=== PATIENT | female | born 1955 | race Caucasian/White ===

== ENCOUNTER 2018-01-09 22:22 | Inpatient (IN) | payer BC ==
[~2018-01-09] VITALS: Ht 170.2 cm; Wt 80.3 kg
[2018-01-09 22:25] VITALS: BP_SYST 159
[2018-01-09] MEDS ORDERED: ASPIRIN 81 MG TAB.CHEW PO ONE (22:30)
--- NOTE | 2018-01-09 22:33 | NUR ---
Placed in room 01 . Placed on radiation monitor, blood pressure machine and pulse oximeter. To gown for exam. Side rails up. Report given to JONA Zhang
--- NOTE | 2018-01-09 22:35 | NUR ---
Patient ambulatory to ED a/o x 4 with c/o substernal chest pain and heart palpitations x 2 hours. Patient reports sudden onset of dull pain which does not radiate. -SOB; -N/V/D; Afebrile. Patient denies cardiac Hx. States she has recently cut back on caffeine usage. Patient does not appear in acute distress at this time will continue to monitor.
--- NOTE | 2018-01-09 22:41 | NUR ---
ED MD Corbett at bedside for medical evaluation.
--- NOTE | 2018-01-09 22:43 | NUR ---
Radiolgy at bedside for CXR.
[2018-01-09] MEDS ORDERED: METOPROLOL TARTRATE 25 MG TABLET PO ONE (22:45)
--- NOTE | 2018-01-09 22:50 | NUR ---
#20 gauge angiocath placed to LAC. Use of asceptic technique. Opsite placed over site. Blood return noted. Blood for lab drawn from site. Flushed with 10 cc of normal saline. No evidence of infiltration noted. Patient tolerated well.
[2018-01-09 22:58] LABS: BASOPHILS # (AUTO) 0.1 K/uL (0.0-0.2); EOSINOPHILS # (AUTO) 0.2 K/uL (0.0-0.4); EOSINOPHILS % (AUTO) 3.2 % (0.0-4.0); HEMATOCRIT 40.8 % (36-48); HEMOGLOBIN 13.9 g/dL (12.0-16.0); LYMPHOCYTES # (AUTO) 3.4 K/uL (1.0-5.5); LYMPHOCYTES % (AUTO) 46.5 % (20.5-51.5); MEAN CORPUSCULAR HEMOGLOBIN 29 pg (27-31); MEAN CORPUSCULAR HGB CONC 34 % (32-36); MEAN CORPUSCULAR VOLUME 86 fL (79.0-98.0); MONOCYTES # (AUTO) 0.7 K/uL (0.0-1.0); MONOCYTES % (AUTO) 9.2 % (1.7-9.3); NEUTROPHILS % (AUTO) 40.1 % (40.0-70.0); PLATELET COUNT (AUTO) 227 K/uL (130-430); RED BLOOD CELL COUNT(AUTO) 4.73 MIL/uL (4.2-6.2); RED CELL DISTRIBUTION WIDTH 12.3 % (9.0-15.0); WHITE BLOOD COUNT (AUTO) 7.4 K/uL (4.8-10.8)
[2018-01-09 23:20] LABS: BILIRUBIN,URINE NEGATIVE (NEGATIVE); CLARITY/URINE CLEAR (CLEAR); COLOR,URINE YELLOW (YELLOW); GLUCOSE,URINE NEGATIVE (NEGATIVE); KETONES,URINE NEGATIVE (NEGATIVE); LEUKOCYTE ESTERASE ,URINE NEGATIVE (NEGATIVE); NITRITE, URINE NEGATIVE (NEGATIVE); PH,URINE 6.5 (5.0-8.0); PROTEIN URINE NEGATIVE (NEGATIVE); UROBILINOGEN,URINE 0.2 (0.2-1.0)
[2018-01-09 23:21] LABS: CREATININE 0.72 mg/dL (0.55-1.30); POTASSIUM 3.3 mmol/L (3.5-5.1)
[2018-01-09 23:26] LABS: ALBUMIN 3.9 g/dL (3.4-4.8); TOTAL BILIRUBIN 0.3 mg/dL (0.0-1.0)
[2018-01-09 23:36] LABS: PROTHROMBIN TIME 9.8 SECS (9.5-12.5)
[2018-01-09 23:46] LABS: BLOOD, URINE TRACE (NEGATIVE)
[2018-01-09 23:52] LABS: BACTERIA,URINE RARE /HPF (None Seen); RBC,URINE 0-3 /HPF (0-3); WBC,URINE 0-3 /HPF (0-3)
[2018-01-10] MEDS ORDERED: POTASSIUM CHLORIDE 20 MEQ TAB.PRT.SR PO ONE ×2 (00:30→15:15)
--- NOTE | 2018-01-10 01:03 | NUR ---
ED MD Corbett at bedside reassessing patient.
--- NOTE | 2018-01-10 01:15 | NUR ---
End of life care decisions discussed with patient by Dr. Corbett. Opportunity for questions and concerns addressed. Patient's code status is Full Code paperwork completed and placed in chart.
[2018-01-10] MEDS ORDERED: NITR100C PO (01:19)
[2018-01-10] MEDS ORDERED: LOSA25TA3 PO (01:19)
--- NOTE | 2018-01-10 01:30 | NUR ---
Patient will be admitted to care of Dr. Mario. Admitted to Telemetry unit. Will go to room 134A. Belongings list completed. Summary report printed. Report will be given at bedside. Transfer to telemetry via ACLS protocol. Licensed nurse present. IV present no signs or symptoms of infiltration.
--- NOTE | 2018-01-10 01:33 | NUR ---
ADMISSION: The patient, SHORTY BAILON, 62 y/o, F admitted by NOEL MONTAGUE MD, DIAGNOSED WITH NEW ONSET OF AFIB .PT CAME VIA [facility] ;ROOM 134 A
[2018-01-10 01:39] VITALS: BP_SYST 139
--- NOTE | 2018-01-10 01:57 | NUR ---
Initial RN Notes Received pt from ED via carole. PT AAOx4, VSS, no acute distress noted. Pt on pvc monitor. IV saline lock L. AC 20G clear, patent. Pt oriented to call light use. Bed low/locked position. Call light within reach. To monitor.
--- NOTE | 2018-01-10 02:10 | NUR ---
CONSULTATION CALLED REASON FOR CONSULTATION: New Onset Atrial Fibrillation WAS CONSULT CALLED? Y PERSON WHO WAS NOTIFIED: Marcia CONSULTING PHYSICIAN: Kyra Mackay CATERING CHEF PHONE NUMBER: [phone] ORDERING PHYSICIAN: Dr. Mario Addendum: 01/10/18 at 0216 by Mandy Love PA/ Consulting Physician: Kyra Mackay (Dr. Rios is insurance verification representative)
--- NOTE | 2018-01-10 07:30 | NUR ---
AM ROUNDS: PATIENT AWAKE DURING ROUNDS. BEDSIDE REPORT GIVEN BY NIGHT NURSE JENNIFER. CONTROLLED AFIB. NO COMPLAINED OF PAIN.CALL LIGHT WITH IN REACH.
[2018-01-10 08:18] VITALS: BP_SYST 116
--- NOTE | 2018-01-10 08:19 | NUR ---
RN ROUNDS: PATIENT SITTING ON THE BED,PREPARING FOR BREAKFAST. STABLE VITAL SIGNS. DENIES ANY CHEST PAIN. CALL LIGHT WITH IN REACH. BED LOCKED AT LOWEST POSITION.
[2018-01-10 09:09] LABS: BASOPHILS # (AUTO) 0.1 K/uL (0.0-0.2); BASOPHILS % (AUTO) 0.8 % (0.0-2.0); EOSINOPHILS # (AUTO) 0.3 K/uL (0.0-0.4); EOSINOPHILS % (AUTO) 3.8 % (0.0-4.0); HEMATOCRIT 42.9 % (36-48); HEMOGLOBIN 14.4 g/dL (12.0-16.0); LYMPHOCYTES # (AUTO) 2.8 K/uL (1.0-5.5); LYMPHOCYTES % (AUTO) 38.3 % (20.5-51.5); MEAN CORPUSCULAR HEMOGLOBIN 29 pg (27-31); MEAN CORPUSCULAR HGB CONC 34 % (32-36); MONOCYTES # (AUTO) 0.7 K/uL (0.0-1.0); NEUTROPHILS # (AUTO) 3.4 K/uL (1.8-7.7); NEUTROPHILS % (AUTO) 48.1 % (40.0-70.0); RED CELL DISTRIBUTION WIDTH 12.1 % (9.0-15.0); WHITE BLOOD COUNT (AUTO) 7.3 K/uL (4.8-10.8)
[2018-01-10] MEDS: METOPROLOL TARTRATE 25 MG TABLET PO SCH ×2 (09:25→20:41)
[2018-01-10 09:35] LABS: MEAN CORPUSCULAR VOLUME 88 fL (79.0-98.0)
[2018-01-10 09:36] LABS: ALBUMIN 3.7 g/dL (3.4-4.8); CREATININE 0.78 mg/dL (0.55-1.30); POTASSIUM 3.4 mmol/L (3.5-5.1); THYROID STIMULATING HORMONE 1.06 uIu/mL (0.34-4.82); TOTAL BILIRUBIN 0.4 mg/dL (0.0-1.0)
[2018-01-10 11:38] LABS: PLATELET COUNT (AUTO) 212 K/uL (130-430)
[2018-01-10 12:10] VITALS: BP_SYST 106
--- NOTE | 2018-01-10 12:10 | NUR ---
RN ROUNDS: DENIES ANY CHEST PAIN. NO DISTRESS. CALL LIGHT WITH IN REACH. BED LOCKED AT LOWEST POSITION.
[2018-01-10] MEDS ORDERED: METOPROLOL TARTRATE 25 MG TABLET PO SCH (13:30)
[2018-01-10] MEDS ORDERED: APIXABAN 2.5 MG TABLET PO SCH (13:30)
[2018-01-10] MEDS ORDERED: DIGOXIN 0.25 MG TABLET PO ONE (13:45)
[2018-01-10] MEDS ORDERED: APIXABAN 2.5 MG TABLET PO ONE (15:00)
--- NOTE | 2018-01-10 15:15 | NUR ---
CARDIO ROUNDS: PATIENT SEEN BY DR TOLEDO WITH ORDERS INCREASED ELIQUIS 5MG PO FIRST DOSE NOW.
[2018-01-10 15:36] VITALS: BP_SYST 119
[2018-01-10 16:51] VITALS: BP_SYST 139
--- NOTE | 2018-01-10 18:15 | NUR ---
HEART RHYTHM: RESIDENTIAL CHILD CARE COUNSELOR CALLED PATIENT CONVERTED TO SINUS RHYTHM.
--- NOTE | 2018-01-10 18:33 | NUR ---
CLOSING NOTES: STABLE. DENIES ANY CHEST PAIN. HAD DINNER. CALL LIGHT WITH IN REACH. BED LOCKED AT LOWEST POSITION.
--- NOTE | 2018-01-10 19:20 | NUR ---
OPENING NOTES Bedside report was received from dayshift nurse. Patient received lying in bed watching on her cellphone. No s/s of acute distress noted, patient denies any pain at this time. Breathing is even and unlabored, no SOB. Call light is with patient, instructed to call for any assistance, patient verbalized understanding. Patient refuses to have bed alarm on despite being educated on its benefits, will continue to encourage throughout shift. Bed is locked and at lowest position. Will continue to monitor.
[2018-01-10 20:00] VITALS: BP_SYST 106
[2018-01-10] MEDS: POTASSIUM CHLORIDE 20 MEQ TAB.PRT.SR PO SCH (20:40)
[2018-01-10] MEDS: APIXABAN 2.5 MG TABLET PO SCH (20:41)
--- NOTE | 2018-01-10 21:30 | NUR ---
SINUS YESSY RN informed by telephone mechanic that patient is Sinus Yessy at this time with 45 beats per minute. Patient is sitting at bedside at this time. No s/s of acute distress. Patient denies any pain. Chest rise and fall are even bilaterally. Call light within reach. Will continue to monitor and reassess.
--- NOTE | 2018-01-10 23:02 | NUR ---
ROUNDS Patient in bed sleeping at this time. No s/s of acute distress. No SOB. Breathing is even and unlabored. Call light with patient. Will continue to monitor.
--- NOTE | 2018-01-11 01:00 | NUR ---
ROUNDS Patient in bed sleeping at this time. NO signs of discomfort noted. No SOB. Chest rise and fall are even bilaterally. Call light with patient. Will continue to monitor.
[2018-01-11 01:04] VITALS: BP_SYST 124
--- NOTE | 2018-01-11 03:00 | NUR ---
ROUNDS Patient in bed sleeping comfortably. No s/s of acute distress. Breathing even and unlabored. Call light with patient. Will continue to monitor.
--- NOTE | 2018-01-11 04:58 | NUR ---
ROUNDS Patient sleeping in bed comfortably. No signs of discomfort noted. Breathing is even and unlabored. Call light within reach. Will continue to monitor.
--- NOTE | 2018-01-11 06:39 | NUR ---
CLOSING NOTES Patient in bed sleeping at this time. No episodes of acute distress noted throughout shift. All of patient's needs met throughout shift. Fall and safety precautions met throughout shift. Will continue to monitor until patient care is endorsed to oncoming day shift nurse.
[2018-01-11 07:05] LABS: BASOPHILS # (AUTO) 0.1 K/uL (0.0-0.2); BASOPHILS % (AUTO) 1.1 % (0.0-2.0); EOSINOPHILS # (AUTO) 0.3 K/uL (0.0-0.4); EOSINOPHILS % (AUTO) 4.1 % (0.0-4.0); HEMATOCRIT 38.4 % (36-48); LYMPHOCYTES # (AUTO) 3.6 K/uL (1.0-5.5); LYMPHOCYTES % (AUTO) 44.4 % (20.5-51.5); MEAN CORPUSCULAR HEMOGLOBIN 30 pg (27-31); MEAN CORPUSCULAR HGB CONC 34 % (32-36); MEAN CORPUSCULAR VOLUME 89 fL (79.0-98.0); MONOCYTES # (AUTO) 0.7 K/uL (0.0-1.0); MONOCYTES % (AUTO) 8.3 % (1.7-9.3); NEUTROPHILS # (AUTO) 3.5 K/uL (1.8-7.7); NEUTROPHILS % (AUTO) 42.1 % (40.0-70.0); PLATELET COUNT (AUTO) 207 K/uL (130-430); RED BLOOD CELL COUNT(AUTO) 4.34 MIL/uL (4.2-6.2); RED CELL DISTRIBUTION WIDTH 12.3 % (9.0-15.0); WHITE BLOOD COUNT (AUTO) 8.2 K/uL (4.8-10.8)
[2018-01-11 07:32] LABS: CREATININE 0.83 mg/dL (0.55-1.30); POTASSIUM 4.2 mmol/L (3.5-5.1)
[2018-01-11 08:00] VITALS: BP_SYST 101
--- NOTE | 2018-01-11 08:11 | NUR ---
AM Note pt resting in bed, A&Ox4, lung sounds clear throughout, no complaints of shortness of breath or chest pain, denies any pain at this time, IV site clean, dry, and intact, no additional needs at this time, bed in low position, bed alarm on, side rails up x2, call light within reach, pt educated sonogram technician light and asked to call for assistance, pt verbalized understanding, fall precautions in place.
[2018-01-11] MEDS: APIXABAN 2.5 MG TABLET PO SCH ×2 (08:35→20:45)
[2018-01-11] MEDS: POTASSIUM CHLORIDE 20 MEQ TAB.PRT.SR PO SCH (08:35)
[2018-01-11] MEDS: METOPROLOL TARTRATE 25 MG TABLET PO SCH (08:36)
--- NOTE | 2018-01-11 10:40 | NUR ---
RN Rounds pt sitting in chair, no complaints of pain, no respiratory distress, no complaints of chest pain, no additional needs at this time, fall precautions in place, call light in reach.
[2018-01-11 12:40] VITALS: BP_SYST 107
--- NOTE | 2018-01-11 13:07 | NUR ---
RN Rounds pt up in chair, family at bedside, no complaints of pain, denies shortness of breath or chest pain, no additional needs at this time.
--- NOTE | 2018-01-11 13:55 | NUR ---
RN Rounds pt sitting in chair, family at bedside, child support case officer talking with patient, no additional needs at this time.
--- NOTE | 2018-01-11 15:02 | NUR ---
DC PLANNING Spoke w pt & @ bedside, states would like contracted balloon seller. Called & spoke jose Alvarez @ [employer], ph [phone], states contracted Cylinder Valve Repairer is Dr Browning, ph [phone]. Per Kim is having coordinator put in auth for Cylinder Valve Repairer, auth should be cleared in about an hour. Spoke w pt & @ bedside, gave them contact information for Dr Browning & informed should have auth in about an hour.
[2018-01-11 16:48] VITALS: BP_SYST 124
[2018-01-11] MEDS: DRONEDARONE HYDROCHLORIDE 400 MG TABLET PO SCH (17:29)
--- NOTE | 2018-01-11 17:31 | NUR ---
Medication pt educated on medication use and side effects, pt verbalized understanding, Dr. Mario aware of heart rate 52 and okay to give multaq, pt tolerated medication administration well, will continue to monitor.
--- NOTE | 2018-01-11 18:34 | NUR ---
Closing Note pt resting in bed, denies chest pain or shortness of breath, no complaints of pain at this time, IV site patent, no additional needs at this time, fall precautions in place, will endorse care to nightman RN.
--- NOTE | 2018-01-11 19:05 | NUR ---
Initial Note: Received handoff report from day shift RN. Patient is awake in bed talking on cellphone, alert and oriented x4. Does not signs or symptoms of distress, denies pain. IV 20G saline lock on left AC noted, patent and benign. Bed is locked in lowest position, upper side rails raised. Call light is within patient's reach, encouraged patient to use call light for any needs. Explained plan of care to patient, patient verbalized understanding. Will continue with plan of care.
[2018-01-11 20:05] VITALS: BP_SYST 126
--- NOTE | 2018-01-11 21:05 | NUR ---
Rounds: Patient is awake in bed, talking on her cellphone. No signs or symptoms of acute distress, denies pain. Bed is locked in lowest position with side rails x2 raised. Call light is within patient's reach, encouraged patient to use call light for any needs. Will continue to monitor.
--- NOTE | 2018-01-11 23:05 | NUR ---
Rounds: Patient is awake in bed watching TV. Bed is locked in lowest position with both upper side rails raised. Call light is within patient's reach, encouraged patient to use call light for any needs. Will continue to monitor.
[2018-01-12 00:22] VITALS: BP_SYST 103
--- NOTE | 2018-01-12 01:05 | NUR ---
Rounds: Patient is sleeping in bed. No signs or symptoms of acute distress noted. Bed is locked in lowest position with both upper side rails raised. Call light is within patient's reach, encouraged patient to use call light for any needs. Will continue to monitor.
[2018-01-12] MEDS ORDERED: APIX5TAB PO (03:01)
[2018-01-12] MEDS ORDERED: METO25TA3 PO (03:04)
[2018-01-12] MEDS ORDERED: DRON400T PO (03:05)
--- NOTE | 2018-01-12 03:05 | NUR ---
Rounds: Patient asleep in bed. No signs or symptoms of acute distress. Bed is in lowest position with side rails raised. Call light is within patient's reach. Will continue to monitor.
--- NOTE | 2018-01-12 05:05 | NUR ---
Rounds: Patient is sleeping. Shows no signs or symptoms of acute distress. Bed is locked in lowest position with upper side rails raised. Call light is within patient's reach. Will continue to monitor.
--- NOTE | 2018-01-12 06:45 | NUR ---
Closing Note: Patient is asleep in bed, no signs or symptoms of acute distress. IV on left AC 20 gauge saline lock patent and benign. Patient remains on room air. Bed is locked in lowest position with upper side rails raised. Call light is within patient's reach. All needs met and attended to. Will endorse to oncoming dayshift nurse.
--- NOTE | 2018-01-12 08:00 | NUR ---
AM rounds patient resting bed in, a/ox4, denies chest pain or palpitations, assessment complete, IV site is patent no s/s of infiltration at this time, educated donations attendant light system and to call for any assistance, patient verbalized understanding, bed in lowest position, two side rails up, call light within reach, fall and aspiration precautions in place.
[2018-01-12 08:33] VITALS: BP_SYST 121
[2018-01-12] MEDS: APIXABAN 2.5 MG TABLET PO SCH (08:37)
[2018-01-12] MEDS: DRONEDARONE HYDROCHLORIDE 400 MG TABLET PO SCH (08:38)
--- NOTE | 2018-01-12 08:40 | NUR ---
Medications Patient resting in bed, awake, denies pain, educated on medications uses and potential side effects, patient verbalized understanding and tolerated well, discussed plan of care with the patient, she verbalized understanding at this time, bed in lowest position, two side rails up, call light within reach fall and aspiration precautions in place, continuing to monitor.
[2018-01-12] MEDS ORDERED: METOPROLOL SUCCINATE 25 MG TAB.SR.24H (TOPROL XL) PO SCH (09:00)
[2018-01-12 09:55] VITALS: BP_SYST 121
--- NOTE | 2018-01-12 11:24 | NUR ---
RN rounds Patient resting in bed, awake, denies chest pain, denies palpitations, waiting on her ride home for discharge, no other needs at this time, bed in lowest position, two side rails up, call light within reach, fall and aspiration precautions in place, continuing to monitor.
[2018-01-12 12:00] VITALS: BP_SYST 119
--- NOTE | 2018-01-12 12:20 | NUR ---
D/C Patient Patient given medication reconciliation form and D/C instructions. Exit Care provided. Patient verbalized understanding. MD discussed with patient the results and treatment provided. Ambulatory with steady gait for discharge to home. Patient in stable condition, ID band removed. IV catheter removed, intact and dressing applied, no active bleeding, DRILL HAND REMOVED AND RETURNED TO MORTGAGE LOAN PROCESSING CLERK. Rx of MALTAQ, TOPROL, ELIQUIS given. Patient educated on pain management. All belongings sent with patient.
--- NOTE | 2018-01-14 11:15 | NUR ---
Discharge Follow Up Phone Call BURRER MACHINE phoned patient, . Patient stated she was doing fine. She has filled her prescriptions and is taking her medication as directed. She has made a follow up appointment with speech language pathology assistant, Dr Browning, for 01/26/18. She has an appointment made with her PCP also. Patient has no other questions or concerns.
== END 2018-01-12 12:20 | disposition home or self-care (01) | DRG 309 ==
LOC: SED 22:22 → STU 01-10 01:11
PROVIDERS: ADMIT Internal Medicine; ATTEND Internal Medicine
DX: I48.91 Unspecified atrial fibrillation (principal); D68.59 Other primary thrombophilia; N39.0 Urinary tract infection, site not specified; E87.6 Hypokalemia; I10 Essential (primary) hypertension; Z90.710 Acquired absence of both cervix and uterus; Z79.899 Other long term (current) drug therapy; Z82.49 Family history of ischemic heart disease and other diseases of the circulatory system
CPT/HCPCS: 36415; 71045; 80048; 80053; 80061; 81000-TC; 82550-TC; 83735-TC; 83880; 84443-TC; 84484; 85025; 85379; 85610-TC; 85730-TC; 93005; 93306; 99285